=== PATIENT | female | born 1995 | race Caucasian/White ===

== ENCOUNTER → 2023-12-18 16:06 | Outpatient (REF) | payer BC, SELFPAY | LOC: PNTC 16:06 | PROVIDERS: ATTENDING PHYSICIAN Obstetrics & Gynecology | DX: Z36.0 Encounter for antenatal screening for chromosomal anomalies (principal); Z36.82 Encounter for antenatal screening for nuchal translucency | CPT/HCPCS: 36415; 76801; 76813 ==

== ENCOUNTER 2024-06-22 20:35 | Inpatient (IN) | payer BC, SELFPAY ==
[2024-06-22 20:38] VITALS: BMI 43.6
[2024-06-22 23:05] VITALS: BP 131/82
[2024-06-23 00:05] LABS: % Basophils 0.3 % (0-2); % Eosinophils 0.4 % (0-6); % Immature Granulocytes 0.5 % (0-0.5); % Lymphocytes 8.4 % (20.5-51.1); % Monocytes 5.4 % (1.7-9.3); Absolute Immature Granulocytes 0.1 10^3/uL (0-0.05); Absolute Lymphocytes 0.9 10^3/uL (1.2-3.4); Absolute Monocytes 0.6 10^3/uL (0.1-0.6); Absolute Neutrophils 9.4 10^3/uL (1.4-6.5); Hemoglobin 11.7 g/dL (12.0-16.0); Mean Corp Hgb Conc. 33.4 g/dL (33.0-37.0); Mean Corpuscular Hgb 26.5 pg (27.0-31.0); Mean Corpuscular Volume 79.4 fL (81.0-99.0); Mean Platelet Volume 10.5 fL (7.4-10.4); Nucleated Red Blood Cells % 0 %; Platelet Count 225 10^3/uL (130-400); Red Blood Cell Count 4.41 10^6/uL (4.20-5.40); Red Cell Dist. Width 15.3 % (11.5-14.5)
[2024-06-23] MEDS: LR 1000 IV ×2 (00:57→12:30)
[2024-06-23] MEDS: TUMS CHEWABLE TABLET 400 MG PO (01:45)
[2024-06-23] MEDS: ZOFRAN 4 MG IV (04:16)
[2024-06-23] MEDS: PRENATAL PLUS PO (08:30)
[2024-06-23] MEDS: SUBLIMAZE 100 MCG EPIDURAL (12:39)
[2024-06-23] MEDS: FENTANYL/BUPIVACAINE 100 EPIDURAL (12:39)
[2024-06-23] MEDS: PITOCIN 30 UNITS/NSS 500 ML IV (14:15)
[2024-06-23] MEDS: TYLENOL 650 MG PO (23:11)
[2024-06-23] MEDS: MOTRIN 600 MG PO (23:12)
[2024-06-24 05:57] LABS: Hematocrit 29.8 % (37.0-47.0)
[2024-06-24] MEDS: FEOSOL 325 MG PO (08:00)
[2024-06-24] MEDS: PRENATAL PLUS 1 TABLET PO (08:00)
[2024-06-24] MEDS: SENOKOT-S 1 TABLET PO (08:05)
[2024-06-24] MEDS: MOTRIN 600 MG PO ×3 (08:05→20:31)
[2024-06-24] MEDS: TYLENOL 650 MG PO ×2 (14:16→20:31)
[2024-06-25] MEDS: FEOSOL 325 MG PO (08:54)
[2024-06-25] MEDS: MOTRIN 600 MG PO (08:54)
[2024-06-25] MEDS: SENOKOT-S 1 TABLET PO (08:54)
[2024-06-25] MEDS: PRENATAL PLUS 1 TABLET PO (08:54)
[2024-06-25 11:18] LABS: Syphilis/T. pallidum Ab Reflex Negative (Negative)
== END 2024-06-25 11:24 | disposition home or self-care (01) | DRG 807 ==
LOC: LDRP 20:35
PROVIDERS: ADMITTING PHYSICIAN Obstetrics & Gynecology; ATTENDING PHYSICIAN Student in an Organized Health Care Education/Training Program
PROC: 10E0XZZ Delivery of Products of Conception, External Approach (ICD-10-PCS; 2024-06-23)
PROC: 0KQM0ZZ Repair Perineum Muscle, Open Approach (ICD-10-PCS; 2024-06-23)
DX: O99.892 Other specified diseases and conditions complicating childbirth (principal); Z37.0 Single live birth; R19.7 Diarrhea, unspecified; R11.10 Vomiting, unspecified; Z3A.39 39 weeks gestation of pregnancy; O70.1 Second degree perineal laceration during delivery
CPT/HCPCS: 36415; 85014; 85018; 85025; 86780; 86850; 86900; 86901